=== PATIENT | female | born 1975 | race Caucasian/White ===

== ENCOUNTER → 2021-12-20 | Day surgery (SDC) | payer OTHER ==
[~2021-12-20] VITALS: Ht 162.6 cm; Wt 81.6 kg
[~2021-12-20] MED LIST: NAPROXEN500 MG PO
[2021-12-20 11:13] LABS: HCG (URINE) SCREEN NEGATIVE (NEGATIVE)
[2021-12-20 11:31] LABS: HCT 39.1 % (37.0-47.0); HGB 13.1 g/dl (12.5-16.0); MCH 29.4 pg (25.0-31.0); MCHC 33.5 g/dL (32.0-36.0); MCV 87.9 fL (78.0-100.0); RBC 4.45 M/uL (4.20-5.40); RDW 13.5 % (11.5-14.0); WBC 6.6 K/uL (4.0-10.5)
[2021-12-20 11:54] LABS: ALBUMIN 3.6 g/dL (3.4-5.0); BILIRUBIN - TOTAL 0.3 mg/dL (0.2-1.0); BUN/CREAT RATIO (CALC) 11.7 RATIO; CREATININE 0.77 mg/dL (0.51-0.95); GLOBULIN (CALCULATION) 3.7 g/dL; POTASSIUM 4.3 mmol/L (3.5-5.1); TOTAL PROTEIN 7.3 g/dL (6.4-8.2)
== END | disposition home or self-care (01) ==
LOC: FAS 10:01
PROVIDERS: Surgery
DX: R19.4 Change in bowel habit (principal); K29.50 Unspecified chronic gastritis without bleeding; B96.81 Helicobacter pylori [H. pylori] as the cause of diseases classified elsewhere; K63.5 Polyp of colon; K44.9 Diaphragmatic hernia without obstruction or gangrene; K57.30 Diverticulosis of large intestine without perforation or abscess without bleeding; K58.9 Irritable bowel syndrome, unspecified; Z91.040 Latex allergy status
CPT/HCPCS: 36415; 80053; 84703; J1610; J2250; J2704; J7120

== ENCOUNTER → 2022-01-30 | Day surgery (SDC) | payer OTHER ==
[~2022-01-30] VITALS: Ht 162.6 cm; Wt 81.6 kg
[~2022-01-30] MED LIST changes: +NORCO 5-325 TA1 EACH PO; +ONDANSETRON ODT8 MG PO
[2022-01-30 10:07] LABS: HCG (URINE) SCREEN NEGATIVE (NEGATIVE)
[2022-01-30 10:25] LABS: HCT 38.7 % (37.0-47.0); HGB 12.8 g/dl (12.5-16.0); MCH 28.8 pg (25.0-31.0); MCHC 33.1 g/dL (32.0-36.0); MPV 10.6 fL (6.0-9.5); RBC 4.45 M/uL (4.20-5.40); RDW 13.7 % (11.5-14.0); WBC 5.8 K/uL (4.0-10.5)
[2022-01-30 10:59] LABS: ALBUMIN 3.6 g/dL (3.4-5.0); BILIRUBIN - TOTAL 0.3 mg/dL (0.2-1.0); BUN/CREAT RATIO (CALC) 17.6 RATIO; CREATININE 0.68 mg/dL (0.51-0.95); GLOBULIN (CALCULATION) 3.5 g/dL; POTASSIUM 4.1 mmol/L (3.5-5.1); TOTAL PROTEIN 7.1 g/dL (6.4-8.2)
== END | disposition home or self-care (01) ==
LOC: FAS 09:34
PROVIDERS: Surgery
DX: K42.0 Umbilical hernia with obstruction, without gangrene (principal); K40.00 Bilateral inguinal hernia, with obstruction, without gangrene, not specified as recurrent; Z91.040 Latex allergy status; Z91.018 Allergy to other foods
CPT/HCPCS: 36415; 71045; 80053; 84703; C1727; C1781; J0690; J1100; J1170; J2250; J2405; J2704; J2710; J3010; J7120